=== PATIENT | female | born 1990 | race Caucasian/White ===

== ENCOUNTER 2017-10-26 17:05 | Emergency (ER) | payer BC ==
[2017-10-26] MEDS ORDERED: Ondansetron 4 MG/2 ML SDV ONE (18:09)
[2017-10-26] MEDS ORDERED: Ondansetron 4 MG/2 ML SDV IVPUSH ONE (18:10)
[2017-10-26] MEDS ORDERED: Sodium Chloride 0.9% 10 ML Syringe FLUSH PRN (18:10)
[2017-10-26] MEDS ORDERED: Sodium Chloride 0.9% 1,000 ML IV STA (18:10)
[2017-10-26] MEDS ORDERED: Ketorolac 30 MG/ML SDV IVPUSH ONE (18:45)
--- NOTE | 2017-10-26 18:59 | EDM.PDOC ---
ED HPI GENERAL MEDICAL PROBLEM - General Chief Complaint: General Stated Complaint: POSS. HEAT EXHAUSTION Time Seen by Provider: 10/26/17 17:25 Source of Information: Reports: Patient History Limitations: Reports: No Limitations - History of Present Illness INITIAL COMMENTS - FREE TEXT/NARRATIVE: The patient presents for possible heat exhaustion. She went for a 8 to 10 mile hike today and it was 90s degrees today. She has nausea, chills, and some abdominal pain. She has no fever, chest pain, vomiting, and dysuria. She has a history of crohn's disease and she did not have a flair up for 5 years. She does not think this is a flare up. She has no other medical problems. She has no muscle stiffness or cramping. Onset: Gradual Duration: Hour(s): Location: Reports: Abdomen Quality: Reports: Ache Severity: Mild Improves with: Reports: None Worsens with: Reports: None Associated Symptoms: Reports: Fever/Chills, Nausea/Vomiting. Denies: Chest Pain , Cough, Headaches, Shortness of Breath Epigastric Pain Score (Numeric/FACES): 6 - Related Data Allergies Allergy/AdvReac Type Severity Reaction Status Date / Time rifampin [From Rimactane] Allergy Cannot Verified 10/26/17 17:28 Remember Sulfa (Sulfonamide Allergy Rash Verified 10/26/17 17:28 Antibiotics) Social & Family History - Tobacco Use Smoking Status *Q: Never Smoker - Caffeine Use Caffeine Use: Reports: Coffee - Recreational Drug Use Recreational Drug Use: No ED ROS GENERAL - Review of Systems Review Of Systems: See Below Constitutional: Reports: No Symptoms HEENT: Reports: No Symptoms Respiratory: Reports: No Symptoms Cardiovascular: Reports: No Symptoms Endocrine: Reports: No Symptoms GI/Abdominal: Reports: Abdominal Pain, Nausea. Denies: Diarrhea, Vomiting : Reports: No Symptoms Musculoskeletal: Reports: No Symptoms ED EXAM, GENERAL - Physical Exam Exam: See Below Exam Limited By: No Limitations General Appearance: Alert, No Apparent Distress Ears: Normal External Exam Nose: Normal Inspection Head: Atraumatic, Normocephalic Neck: Normal Inspection Respiratory/Chest: No Respiratory Distress, Lungs Clear, Normal Breath Sounds Cardiovascular: Regular Rate, Rhythm, No Edema, No Murmur GI/Abdominal: Soft, No Organomegaly, No Mass, Tender (Mild tenderness to the upper abdomen) Back Exam: Normal Inspection Extremities: Normal Inspection Neurological: Alert, Oriented, No Motor/Sensory Deficits Course - Vital Signs Last Recorded V/S: Last Vital Signs Temp 98.8 F 10/26/17 17:28 Pulse 83 10/26/17 17:28 Resp 18 10/26/17 17:28 BP 126/94 H 10/26/17 17:28 Pulse Ox 100 10/26/17 17:28 - Orders/Labs/Meds Orders: Active Orders 24 hr Category Date Time Status Peripheral IV Care [RC] . DIRECTED Care 10/26/17 18:10 Active COMPREHENSIVE METABOLIC PN,CMP [CHEM] Stat Lab 10/26/17 18:37 Results CREATINE KINASE,CK [CHEM] Stat Lab 10/26/17 18:37 Received LIPASE [CHEM] Stat Lab 10/26/17 18:37 Results UA W/MICROSCOPIC [URIN] Stat Lab 10/26/17 18:10 Stop Req Sodium Chloride 0.9% [Saline Flush] Med 10/26/17 18:10 Active 10 ml FLUSH ASDIRECTED PRN ED Antiemetic Medication Reflex [OM.PC] Stat Oth 10/26/17 18:11 Ordered Peripheral IV Insertion Adult [OM.PC] Stat Oth 10/26/17 18:10 Ordered Medication Orders Sodium Chloride (Saline Flush) 10 ml FLUSH ASDIRECTED PRN PRN Reason: Keep Vein Open Last Admin: 10/26/17 18:20 Dose: 10 ml Labs: Laboratory Tests 10/26/17 10/26/17 10/26/17 Range/Units 18:37 18:37 18:37 WBC 6.36 (3.98-10.04) K/mm3 RBC 3.96 L (3.98-5.22) M/mm3 Hgb 11.5 (11.2-15.7) gm/L Hct 35.4 (34.1-44.9) % MCV 89.4 (79.4-94.8) fl MCH 29.0 (25.6-32.2) pg MCHC 32.5 (32.2-35.5) g/dl RDW Std Deviation 42.0 (36.4-46.3) fL Plt Count 140 L (182-369) K/mm3 MPV 11.2 (9.4-12.3) fl Neut % (Auto) 75.3 H (34.0-71.1) % Lymph % (Auto) 15.4 L (19.3-51.7) % [place] % (Auto) 8.2 (4.7-12.5) % Eos % (Auto) 0.8 (0.7-5.8) Baso % (Auto) 0.3 (0.1-1.2) % Neut # (Auto) 4.79 (1.56-6.13) K/mm3 Lymph # (Auto) 0.98 L (1.18-3.74) K/mm3 [place] # (Auto) 0.52 H (0.24-0.36) K/mm3 Eos # (Auto) 0.05 (0.04-0.36) K/mm3 Baso # (Auto) 0.02 (0.01-0.08) K/mm3 Sodium 140 (136-145) mEq/L Potassium 3.7 (3.5-5.1) mEq/L Chloride 105 (98-107) mEq/L Carbon Dioxide 25 (21-32) mEq/L Anion Gap 13.7 (5-15) BUN 16 (7-18) mg/dL Creatinine 0.9 (0.55-1.02) mg/dL Est Cr Clr Drug Dosing 73.93 mL/min Estimated GFR (MDRD) > 60 (>60) mL/min BUN/Creatinine Ratio 17.8 (14-18) Calcium 8.8 (8.5-10.1) mg/dL Total Bilirubin 0.6 (0.2-1.0) mg/dL AST 17 (15-37) U/L ALT 17 (14-59) U/L Alkaline Phosphatase 37 L (46-116) U/L Total Protein 6.5 (6.4-8.2) g/dl Albumin 3.4 (3.4-5.0) g/dl Globulin 3.1 gm/dL Albumin/Globulin Ratio 1.1 (1-2) Lipase 114 (73-393) U/L HCG, Qual Negative (NEGATIVE) Meds: Medications Generic Name Dose Route Start Last Admin Trade Name Freq PRN Reason Stop Dose Admin Sodium Chloride 10 ml 10/26/17 18:10 10/26/17 18:20 Saline Flush FLUSH 10 ml ASDIRECTED PRN Administration Keep Vein Open Discontinued Medications Generic Name Dose Route Start Last Admin Trade Name Samuelq PRN Reason Stop Dose Admin Sodium Chloride 1,000 mls @ 1,000 mls/hr 10/26/17 18:10 10/26/17 18:24 Normal Saline IV 10/26/17 19:09 1,000 mls/hr .BOLUS STA Administration Ketorolac Tromethamine 30 mg 10/26/17 18:45 10/26/17 18:52 Toradol IVPUSH 10/26/17 18:46 30 mg ONETIME ONE Administration Ondansetron HCl Confirm 10/26/17 18:09 10/26/17 18:19 Zofran Administered 10/26/17 18:10 Not Given Dose 4 mg .ROUTE .STK-MED ONE Ondansetron HCl 4 mg 10/26/17 18:10 10/26/17 18:18 Zofran IVPUSH 10/26/17 18:11 4 mg ONETIME ONE Administration - Re-Assessments/Exams Free Text/Narrative Re-Assessment/Exam: 10/26/17 19:23 I ordered an IV NS 1L bolus, zofran 4mg IV, toradol 30mg IV, labs and UA. 10/26/17 19:35 Her CBC looks good and her CMP. She feels better. I do not think this is a flare of her crohn's disease. I feel this is heat exhaustion. Departure - Departure Time of Disposition: 19:40 Disposition: Home, Self-Care 01 Condition: Good Clinical Impression: Heat exhaustion Qualifiers: Encounter type: initial encounter Qualified Code(s): T67.5XXA - Heat exhaustion , unspecified, initial encounter - Discharge Information *PRESCRIPTION DRUG MONITORING PROGRAM REVIEWED*: No *COPY OF PRESCRIPTION DRUG MONITORING REPORT IN PATIENT DESMOND: No Referrals: Alexandro Steinberg MD [Primary Care Provider] - 1 Week Forms: ED Department Discharge Additional Instructions: Drink plenty of fluids. It is okay to eat a normal diet. Please return if you are worse with more nausea or pain. - My Orders Last 24 Hours: My Active Orders 10/26/17 18:10 Peripheral IV Care [RC] . DIRECTED UA W/MICROSCOPIC [URIN] Stat Sodium Chloride 0.9% [Saline Flush] 10 ml FLUSH ASDIRECTED PRN Peripheral IV Insertion Adult [OM.PC] Stat 10/26/17 18:11 ED Antiemetic Medication Reflex [OM.PC] Stat 10/26/17 18:37 COMPREHENSIVE METABOLIC PN,CMP [CHEM] Stat CREATINE KINASE,CK [CHEM] Stat LIPASE [CHEM] Stat - Assessment/Plan Last 24 Hours: My Active Orders 10/26/17 18:10 Peripheral IV Care [RC] . DIRECTED UA W/MICROSCOPIC [URIN] Stat Sodium Chloride 0.9% [Saline Flush] 10 ml FLUSH ASDIRECTED PRN Peripheral IV Insertion Adult [OM.PC] Stat 10/26/17 18:11 ED Antiemetic Medication Reflex [OM.PC] Stat 10/26/17 18:37 COMPREHENSIVE METABOLIC PN,CMP [CHEM] Stat CREATINE KINASE,CK [CHEM] Stat LIPASE [CHEM] Stat
== END 2017-10-26 19:44 | disposition home or self-care (01) ==
LOC: JD.ED 17:05
DX: T67.5XXA Heat exhaustion, unspecified, initial encounter (principal); Z88.2 Allergy status to sulfonamides; Z88.8 Allergy status to other drugs, medicaments and biological substances
CPT/HCPCS: 36415; 80053; 82550; 83690; 84703; 85025; 96361; 96374; 96375; 99284; J1885; J2405; J7040; J7050